=== PATIENT | male | born 2005 | race African-American/Black ===

== ENCOUNTER 2023-11-24 07:42 | Outpatient (OUT) | payer OTHER, SELFPAY ==
--- NOTE | 2023-11-24 07:44 | XR_ITS ---
[facility] [id number] Patient Name: DEIRDRE LOMBARDI MRN: [id number] date: 2005 Sex: M Assigned Patient Location: [facility] Current Patient Location: Accession/Order Number: [id number] Exam Date: 11/24/2023 07:50 Report Date: 11/25/2023 12:03 At the request of: ELEAZAR TAMEZ Procedure: XR tibia fibula RT 2V EXAM: Right tibia and fibula HISTORY: Painful lump on the distal anterior aspect for a month, no known injury. TECHNIQUE: 5 views of the right tibia and fibula were obtained. A BB marker was placed over the area of interest. FINDINGS: There is no evidence of fracture or dislocation. There are no suspicious bone lesions. Soft tissues are normal. XR/XR tibia fibula RT 2V IMPRESSION: Unremarkable exam. If clinical concern remains, consider further imaging with MRI. Electronically authenticated by: DEIRDRE IBARRA Date: 11/25/2023 12:03
== END 2023-11-24 07:43 | disposition home or self-care (01) ==
LOC: RAD 07:42
PROVIDERS: Visit Provider Nurse Practitioner
DX: M79.661 Pain in right lower leg (principal)
CPT/HCPCS: 73590